=== PATIENT | female | born 1995 | race Caucasian/White ===

== ENCOUNTER 2016-09-02 19:37 | Emergency (ER) | payer MEDICAID ==
[2016-09-02] MEDS ORDERED: ACETAMINOPHEN 325 MG TABLET PO ONE (21:17)
--- NOTE | 2016-09-02 21:18 | ER Document Report ---
ED Medical Screen (RME) - General Stated Complaint: THUMB INJURY Time seen by provider: 21:17 Mode of Arrival: Ambulatory Information source: Patient Notes: 21-year-old female slipped on a wet floor and her right hand went behind her to catch her which hyper extend the right thumb causing right thumb pain and she is also tender at the right snuffbox. I have greeted and performed a rapid initial assessment of this patient. A comprehensive ED assessment, evaluation of the patient, analysis of test results , and completion of the medical decision making process will be conducted by additional ED providers. TRAVEL OUTSIDE OF THE [place] IN LAST 30 DAYS: No - Related Data Allergies/Adverse Reactions: No Known Allergies Allergy (Verified 09/02/16 21:15) Past Medical History Pulmonary Medical History: Reports: Hx Asthma Skin Medical History: Reports Hx Eczema - Patient says she has "severe" eczema, Denies Hx MRSA Past Surgical History: Reports: Hx Section - x1, Hx Oral Surgery - tonsillectomy - Immunizations Hx Diphtheria, Pertussis, Tetanus Vaccination: No Physical Exam - Vital signs Vitals: Temp Pulse Resp BP Pulse Ox 98.3 F 61 18 131/68 H 100 09/02/16 20:15 09/02/16 20:15 09/02/16 20:15 09/02/16 20:15 09/02/16 20:15 Course - Vital Signs Vital signs: Temp Pulse Resp BP Pulse Ox 98.3 F 61 18 131/68 H 100 09/02/16 20:15 09/02/16 20:15 09/02/16 20:15 09/02/16 20:15 09/02/16 20:15
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
[2016-09-02] MEDS ORDERED: OXYCODONE-ACETAMINOPHEN 5-325 MG TABLET PO ONE (23:50)
[2016-09-02] MEDS ORDERED: HYDROCODONE/ACETAMINOPHEN 5-325 MG 6 TAB/DSPK PO PRN (23:51)
[2016-09-03 00:17] VITALS: BP 132/72
== END 2016-09-03 00:17 | disposition home or self-care (01) ==
LOC: ER 19:37
PROC: 2W3CX1Z Immobilization of Right Lower Arm using Splint (ICD-10-PCS; principal; 2016-09-02)
DX: S69.91XA Unspecified injury of right wrist, hand and finger(s), initial encounter (principal); S62.514A Nondisplaced fracture of proximal phalanx of right thumb, initial encounter for closed fracture; W01.0XXA Fall on same level from slipping, tripping and stumbling without subsequent striking against object, initial encounter
CPT/HCPCS: 99283

== ENCOUNTER 2017-05-10 13:12 | Emergency (ER) | payer MEDICAID ==
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
[2017-05-10] MEDS ORDERED: OXYCODONE-ACETAMINOPHEN 5-325 MG TABLET PO ONE (13:26)
[2017-05-10] MEDS ORDERED: KETOROLAC TROMETHAMINE 60 MG/2 ML SDV IM ONE (13:36)
--- NOTE | 2017-05-10 14:34 | RADIOLOGY REPORT (SQ) ---
EXAM DESCRIPTION: L SPINE WHOLE; SACRUM AND COCCYX COMPLETED DATE/TIME: 05/10/2017 2:18 pm REASON FOR STUDY: pain s/p fall COMPARISON: None. FINDINGS: Five view lumbosacral spine including obliques: S1 looks mildly transitional. Slight rot ation and curvature of the spine at the lumbosacral junction. Vertebrae otherwise intact without betty dence of fracture or bone lesion. Discs look relatively preserved. Three views sacrum and coccyx: Sacrum intact. Coccyx intact. No fracture. SI joints maintained. IMPRESSION: 1. Mild transitional anatomy at the lumbosacral junction. 2. No evidence of fracture or bone lesion. Sacrum and coccyx intact. TECHNICAL DOCUMENTATION: JOB ID: [id number]
[2017-05-10] MEDS ORDERED: LORAZEPAM 1 MG TABLET PO ONE (16:21)
== END 2017-05-10 16:45 | disposition home or self-care (01) ==
LOC: ER 13:12 → EEVIPCON 13:12 → ER 16:45
DX: S30.0XXA Contusion of lower back and pelvis, initial encounter (principal); X58.XXXA Exposure to other specified factors, initial encounter; Y92.009 Unspecified place in unspecified non-institutional (private) residence as the place of occurrence of the external cause; J45.909 Unspecified asthma, uncomplicated
CPT/HCPCS: 99284; 96372; 72220; 72110; J1885